=== PATIENT | male | born 1985 | race Caucasian/White ===

== ENCOUNTER 2018-08-12 04:46 | Emergency (ER) | payer OTHER ==
[2018-08-12 04:52] VITALS: BP 121/88
--- NOTE | 2018-08-12 04:53 | EDPHY ---
H & P Time Seen by Provider: 08/12/18 04:49 HPI/ROS: HPI CHIEF COMPLAINT: Alcohol intoxication, multiple hand lacerations. "fuck you guys, go fuck yourself" HISTORY OF PRESENT ILLNESS: 33-year-old male presents emergency room by EMS with police escort for alcohol intoxication and multiple hand lacerations. Please follow the blood frail from the [facility] parking lot where 911 was called by staff members at [facility] after somebody was screaming outside and rubbing blood all over the front doors. This person than left and please follow the blood trail to where they found him. He arrives to the emergency room and states "Fuck you" to Me. Go Fuck yourself" Past Medical History: Unknown medical history Past Surgical History: Unknown surgical history Social History: Alcohol intoxication. Per EMS history of alcoholism daily alcohol use with homelessness. Family History: Noncontributory ROS REVIEW OF SYSTEMS: Limited due to alcohol intoxication Exam Constitutional verbally aggressive, triage nursing summary reviewed, vital signs reviewed, awake/alert. Eyes normal conjunctivae and sclera, EOMI, PERRLA. HENT normal inspection, atraumatic, moist mucus membranes, no epistaxis, neck supple/ no meningismus, no raccoon eyes. Respiratory clear to auscultation bilaterally, normal breath sounds, no respiratory distress, no wheezing. Cardiovascular rate normal, regular rhythm, no murmur, no edema, distal pulses normal. Gastrointestinal soft, non-tender, no rebound, no guarding, normal bowel sounds, no distension, no pulsatile mass. Genitourinary no CVA tenderness. Musculoskeletal no midline vertebral tenderness, full range of motion, no calf swelling, no tenderness of extremities, no meningismus, good pulses, neurovascularly intact. Skin pink, warm, & dry, no rash, skin atraumatic. Neurologic awake, alert and oriented x 3, AAOx3, moves all 4 extremities equally, motor intact, sensory intact, CN II-XII intact, normal cerebellar, normal vision, Smells of etoh Psychiatric normal mood/affect. Heme/Lymph/Immune no lymphadenopathy. Differential Diagnosis: Includes but is not limited to in a particular order acute alcohol intoxication, multiple hand lacerations Medical Decision Making: Plan for this patient breath alcohol, and if he will allowed me evaluate his hands. Re-evaluation: 0456: I was able to evaluate both of his hands. He let me examine them. He is verbally aggressive here in the emergency room. Patient's hands evaluated the both neurovascular intact with good sensation, good cap refill. Over the dorsum of the right hand specifically the 5th metacarpal knuckle region there is a C-shaped laceration 3 cm. No tendon involvement. Full range of motion of the right hand Left hand is neurovascular intact with good distal pulse, good cap refill, full range of motion. Good nursing secretary, no obvious signs of large lacerations however some skin abrasions. No large laceration that needs to be repaired. Plan for this patient x-ray both hands to rule out foreign bodies or fractures of his bones given trauma and lacerations. He is unsure exactly what happened. Additionally patient reporting to nursing staff his tetanus shot is up-to-date. Will copiously cleaned his wounds. Plan for breath alcohol The 1 laceration on the right hand dorsal aspect may need to be repaired. Patient is a been copiously irrigated and cleaned. X-rays being obtained this bilateral hands 512am Patient heads of been cleaned copiously. The wounds have been cleaned now. His left hand half you neck. But in the need to treat. Patient's right hand dorsal aspect base of the 5th digit over the right knuckle there is a 3 cm C-shaped laceration that needs repair. Laceration Repair Procedure: Verbal Consent was obtained, Under sterile conditions, The patient had lidocaine with epinephrine used approximately 5ccs to local anesthetize the right hand dorsum base of 5th digit, 3CM C shaped Laceration. The wound was copiously irrigated with sterile fluid, the wound was explored for foreign bodies there were none visualized, the wound was explored with a sterile glove to the base. There are no deep structures involved, including no arterial injury. FOUR 6.O PROLENE interrupted Sutures were placed in this patient's laceration. He had good close approximation of the wound edges. He Tolerated this well. Patient was placed in a luminal form splint for immobilization of the laceration given that it is over the 5th MCP joint. There is no tendon vomit on exam. No deep structures. No arterial injury, no bony abnormality. Full range of motion was appreciated. No evidence of tendon injury on exam. 0536: Patient continues to have verbally abuse staff as well as myself telling me to "Fuck off" Given his verbal aggressive behavior, I have asked the police to come and assist us with him. 0538: Patient ambulatory. Clinically sober. Ambulates well throughout the emergency room, safe for discharge to detox. Source: Patient, Police, EMS Exam Limitations: Intoxication Constitutional: Initial Vital Signs Temperature (C) 36.6 C 08/12/18 04:49 Heart Rate 94 08/12/18 04:49 Respiratory Rate 20 08/12/18 04:49 Blood Pressure 121/88 H 08/12/18 04:49 O2 Sat (%) 95 08/12/18 04:49 O2 Delivery Mode Room Air Allergies/Adverse Reactions: No Known Allergies Allergy (Unverified 08/12/18 04:49) Home Medications: Medication Instructions Recorded NK [No Known Home Meds] 08/12/18 Departure - Departure Disposition: Home, Routine, Self-Care Clinical Impression: Alcoholic intoxication Qualifiers: Complication of substance-induced condition: uncomplicated Qualified Code(s): F10.920 - Alcohol use, unspecified with intoxication, uncomplicated Hand laceration Qualifiers: Encounter type: initial encounter Foreign body presence: without foreign body Laterality: unspecified laterality Qualified Code(s): S61.419A - Laceration without foreign body of unspecified hand, initial encounter Condition: Fair Instructions: Care For Your Stitches (ED), Laceration (ED), Alcohol Intoxication (ED), Abuse of Alcohol (ED) Additional Instructions: 1. Your sutures in her right hand need to be removed in 12-14 days. 2. Please keep her wound clean, dry and protected. Watch for infection this includes redness, swelling, doing worse. 3. Stop drinking alcohol. Referrals: Patient,NotPresent [Unknown] - As per Instructions
== END 2018-08-12 05:41 | disposition home or self-care (01) ==
PROC: 0HQFXZZ Repair Right Hand Skin, External Approach (ICD-10-PCS; principal; 2018-08-12)
DX: S61.411A Laceration without foreign body of right hand, initial encounter (principal); S61.412A Laceration without foreign body of left hand, initial encounter; F10.920 Alcohol use, unspecified with intoxication, uncomplicated; Z59.0 Homelessness

== ENCOUNTER 2018-10-10 13:58 | Emergency (ER) | payer MEDICAID ==
--- NOTE | 2018-10-10 14:43 | EDPHY ---
General Time Seen by Provider: 10/10/18 14:43 Narrative: CLINICAL IMPRESSION: Right knee pain ASSESSMENT/PLAN: Patient is a 33-year-old male with no significant medical history who presents to the emergency department with acute, atraumatic right knee pain. X-ray revealed no acute juan antonio abnormality. It is unclear the exact etiology of his pain, however no were no findings to suggest significant effusion, acute fracture, dislocation, compartment syndrome, DVT, Bakers cyst, cellulitis, septic arthritis or neurovascular compromise. The patient was placed in an Tone wrap and knee immobilizer for comfort, was given ibuprofen with improvement of his pain. CMS intact post immobilization. To note, upon discharge patient was noted to bear full weight without difficulty. He is established at [facility], Ortho referral provided, Return precautions discussed. ED PROCEDURES: Procedure: Knee immobilizer. A knee immobilizer was applied. After application I returned and re-examined the patient. The patient's circulation and sensation was intact. ED course: 1457: PDMP reviewed, no narcotic use or history. 1528: X-ray reviewed, no acute bony abnormality noted. Discussed case with Dr. Stiles. 1544: On repeat examination the patient is noted to be moving his leg without difficulty, he is able to bear weight during distraction. He is relieved by his x-ray findings. He will follow up with PCP and Ortho as discussed. CHIEF COMPLAINT: Right knee pain HPI: Patient is a 33-year-old male with no significant medical history who presents to the emergency department with acute, atraumatic right knee pain. Patient reports approximately 6 hr prior to arrival he had a sudden onset of anterior right knee pain which is now radiating down the front of his leg into his ankle. He denies any falls or trauma. No history of similar episodes in the past, surgery or injury to this knee. Patient denies any redness or warmth to the knee. Patient has not tried taking anything for pain, he "hobbled" in here secondary to not being able to walk because of the pain. Patient denies any back, hip or thigh pain. He denies any numbness or tingling of the extremity. He denies any calf pain. ROS: Review of systems otherwise negative, please see HPI. PHYSICAL EXAM: General Appearance: Well-appearing, no acute distress. Respiratory: There are no retractions, lungs are clear to auscultation. Upper Extremities: BUE unremarkable. Intact distal pulses, Full range of motion intact, no tenderness, no ecchymosis or edema Lower Extremities: Left lower extremity is unremarkable. Intact distal pulses, No edema, No tenderness, No cyanosis, full range of motion intact. No calf tenderness bilaterally. Right knee with full range of motion. Patient has tenderness to palpation along the anterior/medial knee There is no appreciable anterior or posterior laxity, no medial or lateral laxity. There is no posterior fullness or tenderness on palpation. There is no appreciable edema or ecchymosis, there is no rubor or calor. There is no tenderness at the proximal fibular head. Right ankle and foot are nontender with full range of motion. Two point discrimination is intact distally. 2+ dorsalis pedis bilaterally. MEDICAL DECISION MAKING: Patient was seen independently. Secondary supervising physician at time of evaluation was Dr. Stiles, he did not evaluate this patient. Diagnosis: Right Knee Pain Summary: See Assessment and Plan for summary of ED visit Clinical lab tests: Not applicable. Independent visualization of images, tracing, or specimens: Yes. Decision to obtain medical records or history from someone other than the patient: No Review / Summarize previous medical records: Yes Discussed patient with another provider: Yes, Dr. Stiles Patient Progress: Stable, discharged. - Diagnostics Imaging Results: Imaging Impressions Knee X-Ray 10/10/18 14:54 Impression: Radiographically normal right knee. - History Smoking Status: Heavy smoker - Objective Vital Signs: Initial Vital Signs Temperature (C) 36.8 C 10/10/18 14:13 Heart Rate 71 10/10/18 14:13 Respiratory Rate 16 10/10/18 14:13 Blood Pressure 137/82 H 10/10/18 14:13 O2 Sat (%) 98 10/10/18 14:13 O2 Delivery Mode Room Air Allergies/Adverse Reactions: mirtazapine Allergy (Verified 10/10/18 14:13) Home Medications: Medication Instructions Recorded Prozac 10 MG (*) 10/10/18 Medications Given: Discontinued Medications Ibuprofen (Motrin) 600 mg PO EDNOW ONE Stop: 10/10/18 14:55 Last Admin: 10/10/18 14:58 Dose: 600 mg Departure - Departure Disposition: Home, Routine, Self-Care Clinical Impression: Knee pain, acute Qualifiers: Laterality: right Qualified Code(s): M25.561 - Pain in right knee Condition: Good Instructions: Knee Pain (ED) Additional Instructions: DISCHARGE INSTRUCTIONS FROM YOUR PROVIDER Thank you for visiting our emergency department today. Please keep in mind that discharge from the emergency department does not mean that there is nothing wrong - it simply means that we have not identified an emergency condition that requires further evaluation or treatment in the hospital. You should always plan to follow up with primary care for re-evaluation of your condition in the next 2-3 days. The [facility] has walk-in appointments. No appointment is needed. Tuesday 11 AM-[address] @ [facility] Tuesday 8-10:30 AM @ [facility] 2-4 PM @ [facility] Ice on and off to the affected knee. Elevate as much as possible. Wear the TONE wrap for compression to help decrease the swelling. Wear your knee immobilizer for the next few days for comfort and support. Limit weightbearing and walking and use your crutches as needed. You can walk and bear weight as tolerated. For pain control: You may take Tylenol, I recommend 500-1000 mg every 6-8 hours as needed. Take with food and a full glass of water. Stop taking if this is upsetting you stomach. Do not exceed 4000 mg in a 24 hr period. You may also take ibuprofen, recommend 400 mg every 6 hr. Take with food and a full glass of water. Stop taking if this upsets your stomach. Do not exceed 2400 mg in a 24 hr period. Call and schedule a follow-up re-evaluation appointment with your primary care physician in the next 3-7 days. As discussed, you may require further evaluation and/or treatment, ie: an MRI, physical therapy, and/or an orthopedic consultation-- all depending on your healing course. Orthopedic injuries you are at increased risk for developing a blood clot in your leg. Be sure to gently stretch your calf on and off throughout the day and seek follow-up care immediately for any calf pain, redness, swellling, ankle swelling, or other concerns. Return for increased or unmanageable pain, new injury, new site of pain, numbness, tingling, weakness of the leg, coolness or discoloration of the leg/ foot/ankle, redness, swelling, fever, difficulty breathing, chest pain, calf pain, ankle swelling, severe headache, back pain, or for any other new, worsening, or worrisome symptoms. People present with illnesses and injuries in different ways, and it is always possible that we have missed something. Again, thank you for choosing our emergency department. We hope that you feel better. Referrals: [facility],. [Clinic] - 2-3 days, call for appt. Minor Lozada MD [Medical Doctor] - 5-7 days, if not improved
[2018-10-10] MEDS: IBUPROFEN 600 MG TAB PO ONE (14:58)
[2018-10-10 15:53] VITALS: BP 131/75
== END 2018-10-10 15:52 | disposition home or self-care (01) ==
DX: M25.561 Pain in right knee (principal)
CPT/HCPCS: L1830